=== PATIENT | female | born 1990 | race African-American/Black ===

== ENCOUNTER 2016-06-29 15:52 | Emergency (ER) | payer BC, MEDICARE, OTHER ==
[~2016-06-29 15:52] MED LIST: HYDR-923
[2016-06-29 15:59] VITALS: BP 109/75
[2016-06-29] MEDS ORDERED: FLUT9.9S NS (16:27)
[2016-06-29] MEDS ORDERED: AMOX1TAB61 PO (16:27)
--- NOTE | 2016-06-29 16:28 | PHYS DOC ---
Past Medical History Past Medical History: No Pertinent History Past Surgical History: No Surgical History Additional Information: nonsmoker Alcohol Use: Occasionally Drug Use: None Adult General Chief Complaint Chief Complaint: HEADACHE HPI HPI Patient is a 26 year old female who presents with 1 month of upper respiratory symptoms. She has nasal congestion and frontal headache with sinus pressure. She has productive cough with post-tussive emesis. She denies nausea or spontaneous vomiting. She has not had fever, sore throat, ear pain, shortness of breath, diarrhea, or abdominal pain. She has been taking Mucinex, Sudafed, and aspirin. Her PCP is Dr. Meneses. Review of Systems Review of Systems Constitutional: Denies fever or chills. [] Eyes: Denies change in visual acuity, redness, or eye pain. [] HENT: Denies ear pain or sore throat. Reports nasal congestion and sinus pressure. Respiratory: Denies shortness of breath. Reports productive cough. Cardiovascular: Denies chest pain, palpitations or edema. [] GI: Denies abdominal pain, nausea, bloody stools or diarrhea. Reports posttussive emesis. : Denies dysuria, hematuria or urinary frequency. [] Musculoskeletal: Denies back pain or joint pain. [] Integument: Denies rash or skin lesions. [] Neurologic: Denies focal weakness or sensory changes. Reports frontal headache. Endocrine: Denies polyuria or polydipsia. [] Psych: Denies anxiety or depression. [] All systems reviewed and negative unless otherwise stated in the HPI. Allergies Allergies Allergies Coded Allergies Type Severity Reaction Last Updated Verified No Known Drug Allergies 08/27/13 No Physical Exam Physical Exam Constitutional: Well developed, well nourished, no acute distress, non-toxic appearance. [] HENT: Normocephalic, atraumatic, bilateral external ears normal, oropharynx moist, no oral exudates, nose normal. Bilateral TMs without erythema or bulging. There is no posterior pharyngeal erythema or tonsillar edema. Bilateral nasal turbinates are swollen and erythematous with purulent drainage. Bilateral frontal sinuses are tender to palpation. Eyes: PERRLA, EOMI, conjunctiva normal, no discharge. [] Neck: Normal range of motion, no tenderness, supple, no stridor. [] Cardiovascular: Heart rate regular rhythm, no murmur [] Lungs & Thorax: Bilateral breath sounds clear to auscultation without wheezes, rales, or rhonchi. Skin: Warm, dry, no erythema, no rash. [] Neurologic: Alert and oriented X 3, normal motor function, normal sensory function, no focal deficits noted. [] Psychologic: Affect normal, judgement normal, mood normal. [] Current Patient Data Vital Signs Vital Signs Date Time Temp Pulse Resp B/P Pulse Ox O2 Delivery O2 Flow Rate FiO2 06/29/16 15:59 98.4 106 18 95 Room Air 98.4 EKG EKG [] Radiology/Procedures Radiology/Procedures [] Course & Med Decision Making Course & Med Decision Making Pertinent Labs and Imaging studies reviewed. (See chart for details) [] Dragon Disclaimer Dragon Disclaimer This electronic medical record was generated, in whole or in part, using a voice recognition dictation system. Departure Departure Impression: Primary Impression: Sinusitis Disposition: HOME, SELF-CARE Condition: STABLE Referrals: MALCOLM MENESES MD (PCP) Patient Instructions: Sinusitis, [id number] Additional Instructions: Please complete all the prescribed antibiotics, even if you are feeling better. Please use the prescribed nasal spray on a daily basis to help decrease sinus congestion and drainage. Please follow up with your primary care doctor if your symptoms continue. Return to emergency department if any new or concerning symptoms. Scripts Amoxicillin/Potassium Clav (Augmentin 875-125 Tablet)1 Each Tablet1 Tab PO BID # 14 TAB Prov:DARNELL LEE 06/29/16 Fluticasone Propionate (Flonase Allergy Relief)9.9 Ml [place].susp2 Sprays NS DAILY #1 BOTTLE Prov:DARNELL LEE 06/29/16 Problem Qualifiers Primary Impression: Sinusitis Sinusitis location: frontal Chronicity: subacute Qualified Code: J01.10 - Acute frontal sinusitis, unspecified DARNELL LEE Jun 29, 2016 16:28
== END 2016-06-29 16:42 ==
LOC: ER 15:52
DX: J01.10 Acute frontal sinusitis, unspecified (principal)
CPT/HCPCS: 99283

== ENCOUNTER 2017-05-09 03:54 | Observation (INO) | payer BC ==
[2017-05-09 04:31] LABS: POC GLUCOSE 164 mg/dL (70-99)
[2017-05-09 04:55] LABS: BILIRUBIN,URINE NEGATIVE (NEG); CLARITY,URINE CLEAR; COLOR,URINE YELLOW; GLUCOSE,URINE 250 mg/dL (NEG); NITRITE,URINE NEGATIVE (NEG); PH,URINE 6.5; PROTEIN,URINE NEGATIVE (NEG-TRACE)
[2017-05-09 05:00] LABS: BACTERIA,URINE FEW /HPF (0-FEW); RBC,URINE 0 /HPF (0-2); SQUAMOUS EPITHELIAL CELL,UR MOD /LPF
[2017-05-09 05:01] LABS: BARBITURATES NEG (NEG); BENZODIAZEPINES NEG (NEG); CANNABINOIDS NEG (NEG); COCAINE NEG (NEG); METHADONE NEG (NEG); OPIATES NEG (NEG); PHENCYCLIDINE NEG (NEG); YEAST,URINE PRESENT /HPF
[2017-05-09 05:02] LABS: AMPHETAMINE/METHAMPHETAMINE NEG (NEG); ETHANOL, URINE NEG (NEG)
[2017-05-09] MEDS: IV RINGERS,LACTATED 1000ML 1,000 ML IV ×2 (06:46)
== END 2017-05-09 10:00 | disposition home or self-care (01) ==
LOC: 3 SO LND 03:54
DX: O26.893 Other specified pregnancy related conditions, third trimester (principal); L29.9 Pruritus, unspecified; N89.8 Other specified noninflammatory disorders of vagina; Z3A.32 32 weeks gestation of pregnancy
CPT/HCPCS: 76805; 80307; 81001; 82962; 87086; 96360; 96361; G0378; G0379; J7120

== ENCOUNTER 2017-05-13 09:49 | Observation (INO) | payer BC | END 2017-05-13 11:15 | disposition home or self-care (01) | LOC: 3 SO LND 09:49 | DX: O24.410 Gestational diabetes mellitus in pregnancy, diet controlled (principal); Z3A.32 32 weeks gestation of pregnancy | CPT/HCPCS: 59025; G0378; G0379 ==

== ENCOUNTER 2017-05-27 10:04 | Observation (INO) | payer BC ==
[2017-05-27 10:32] LABS: POC GLUCOSE 185 mg/dL (70-99)
== END 2017-05-27 13:30 | disposition home or self-care (01) ==
LOC: 3 SO LND 10:04
PROVIDERS: Obstetrics & Gynecology
DX: O36.8130 Decreased fetal movements, third trimester, not applicable or unspecified (principal); O24.419 Gestational diabetes mellitus in pregnancy, unspecified control; Z3A.34 34 weeks gestation of pregnancy
CPT/HCPCS: 76815; 76819; 82962; G0378; G0379

== ENCOUNTER 2017-05-29 13:50 | Observation (INO) | payer BC ==
[2017-05-29] MEDS ORDERED: IV RINGERS,LACTATED 1000ML 1,000 ML IV ×2 (14:15)
== END 2017-05-29 16:15 | disposition home or self-care (01) ==
LOC: 3 SO LND 13:50
DX: O24.419 Gestational diabetes mellitus in pregnancy, unspecified control (principal); Z3A.34 34 weeks gestation of pregnancy
CPT/HCPCS: 59025; 76819; G0378; G0379

== ENCOUNTER 2017-05-31 13:12 | Observation (INO) | payer BC | END 2017-05-31 15:20 | disposition home or self-care (01) | LOC: 3 SO LND 13:12 | DX: Z34.93 Encounter for supervision of normal pregnancy, unspecified, third trimester (principal); Z3A.35 35 weeks gestation of pregnancy | CPT/HCPCS: 59025; 76819; G0378; G0379 ==

== ENCOUNTER 2017-06-03 10:11 | Observation (INO) | payer BC | END 2017-06-03 11:20 | disposition home or self-care (01) | LOC: 3 SO LND 10:11 | DX: O24.419 Gestational diabetes mellitus in pregnancy, unspecified control (principal); Z3A.35 35 weeks gestation of pregnancy | CPT/HCPCS: 59025; G0378; G0379 ==

== ENCOUNTER 2017-06-10 10:26 | Observation (INO) | payer BC | END 2017-06-10 12:20 | disposition home or self-care (01) | LOC: 3 SO LND 10:26 | DX: O24.419 Gestational diabetes mellitus in pregnancy, unspecified control (principal); Z3A.36 36 weeks gestation of pregnancy | CPT/HCPCS: 59025; G0378; G0379 ==

== ENCOUNTER 2017-06-18 11:52 | Observation (INO) | payer BC | END 2017-06-18 16:00 | disposition home or self-care (01) | LOC: 3 SO LND 11:52 | DX: O24.410 Gestational diabetes mellitus in pregnancy, diet controlled (principal); Z3A.37 37 weeks gestation of pregnancy | CPT/HCPCS: 59025; 76819; G0378; G0379 ==

== ENCOUNTER 2017-06-20 10:12 | Observation (INO) | payer BC ==
[2017-06-20 10:51] LABS: BILIRUBIN,URINE SMALL (NEG); CLARITY,URINE CLEAR; COLOR,URINE YELLOW; GLUCOSE,URINE 100 mg/dL (NEG); NITRITE,URINE NEGATIVE (NEG); PH,URINE 6.5; PROTEIN,URINE 30 mg/dL (NEG-TRACE)
[2017-06-20 11:06] LABS: BACTERIA,URINE MODERATE /HPF (0-FEW); RBC,URINE 0 /HPF (0-2); SQUAMOUS EPITHELIAL CELL,UR MOD /LPF; YEAST,URINE PRESENT /HPF
== END 2017-06-20 13:30 | disposition home or self-care (01) ==
LOC: 3 SO LND 10:12
DX: O62.9 Abnormality of forces of labor, unspecified (principal); Z3A.37 37 weeks gestation of pregnancy
CPT/HCPCS: 76819; 81001; 87086; G0378; G0379